=== PATIENT | female | born 1970 | race Caucasian/White ===

== ENCOUNTER 2016-04-22 20:43 | Emergency (ER) | payer BC ==
[~2016-04-22] VITALS: Ht 152.4 cm; Wt 42.9 kg
[~2016-04-22 20:43] MED LIST: [UNRECOGNIZED DRUG - CODE] PO
[2016-04-22 20:46] VITALS: Ht 152.4 cm; Wt 42.9 kg
[2016-04-22] MEDS ORDERED: MULT-506 PO (21:42)
[2016-04-22] MEDS ORDERED: TROLAMINE SALICYLATE 10% CRM 255 APPLN/85 GM TUBE EXT STA (22:47)
[2016-04-22 23:26] VITALS: BP 108/75; PULSE 97; TEMP 37.1; O2SAT 99
--- NOTE | 2016-04-23 04:27 | EMERGENCY ROOM VISIT NOTE ---
History First contact with patient: 22:31 Chief Complaint: LEG PAIN,LEG INJURY Stated Complaint: LEFT THIGH PAIN History of Present Illness The patient is a 46 year old female who presents to the Emergency Room with complaints of left hip pain for the past day that is worse with movement and better with rest who has been doing more walking and stair climbing. Patient states the pain radiates from the lateral aspect of her hip to her hamstring area. Patient did not fall. Patient denies back pain, numbness, tingling, knee pain, urinary symptoms, fever, chills, abdominal pain, chest pain, dyspnea. She describes the pain as aching, ranging in severity 5 out of 10. Worse with movement and better with rest. Review of Systems See HPI for pertinent positives & negatives. A total of 6 systems reviewed and were otherwise negative. Past Medical/Surgical History Medical Problems: (1) Migraine Surgical Problems: (1) H/O adenoidectomy (2) S/P tonsillectomy Family History Cancer Social History Smoking Status: Never Smoker Alcohol Use: none Drug Use: none Marital Status: Housing Status: lives with significant other Occupation Status: employed Current/Historical Medications Scheduled Multivitamin (Multivitamin), 1 TAB PO DAILY Scheduled PRN Lactase (Lactaid Fast Act), 1 TAB PO for WHEN EATS DAIRY Allergies Coded Allergies: Bismuth (Verified Allergy, Mild, GI UPSET, 04/26/15) Beta Adrenergic Blockers (Unverified Allergy, Unknown, UNKNOWN, 04/22/16) BETA BLOCKERS Bismuth Subsalicylate (Unverified Allergy, Unknown, GI SYMPTOMS, 04/22/16) Salicylates (Unverified Allergy, Unknown, VOMITING, 04/26/15) Egg (Verified Adverse Reaction, Unknown, GI SYMPTOMS, 04/26/15) Uncoded Allergies: 3 OR 5 DAY ANTIBIOTIC (Allergy, Unknown, ., 01/09/15) MUSCLE RELAXANTS (Adverse Reaction, Severe, HOMICIDAL AND SUICIDAL IDEATIONS, 06/05/11) Physical Exam Vital Signs Date Time Temp Pulse Resp B/P Pulse Ox O2 Delivery O2 Flow Rate FiO2 04/22/16 23:26 37.1 97 18 108/75 99 04/22/16 22:57 97 18 108/75 99 Room Air 04/22/16 20:46 37.1 114 18 130/79 97 Room Air Pain Rating (0-10): 2.0 Physical Exam VITALS: Vitals are noted on the nurse's note and reviewed by myself. Vital signs stable. GENERAL: Pleasant female, in no acute distress, nondiaphoretic, well-developed well-nourished. SKIN: Capillary reflex less than 2 seconds. HEENT: Normocephalic. PERRLA. EOMI. Nares patent. Mucous membranes moist. HEART: Regular rate and rhythm without murmurs gallops or rubs. LUNGS: Clear to auscultation bilaterally without wheezes, rales or rhonchi. No retractions or accessory muscle use. ABDOMEN: Positive bowel sounds x 4. Normal tympanic percussion. Soft, nontender, without masses or organomegaly. Richard sign negative. No guarding or rebound tenderness. MUSCULOSKELETAL: No gross musculoskeletal defects. No pedal edema. No calf tenderness. No thoracic or lumbar tenderness on exam. Left hip bursa area tender to palpation easily reproducing symptoms with increased pain with range of motion. Pelvis stable. Left thigh, knee nontender to palpation. Patient can fully extend the leg without difficulties. NEURO: Patient was alert and oriented to person place and time. Normal sensation to light and sharp touch. No focal neurological deficits. Medical Decision & Procedures Medications Administered Medications (Trade) Dose Ordered Sig/Bienvenido Route Start Time Stop Time Status Last Admin Dose Admin Trolamine Salicylate (Myoflex Cream) 1 appln NOW STAT EXT 04/22/16 22:47 04/22/16 22:49 DC 04/22/16 23:27 1 APPLN ED Course Prior records/ancillary studies reviewed. Triage Nursing notes reviewed. Additional history obtained from family The patient's history was concerning for left hip pain. Differential diagnosis: Etiologies such as musculoskeletal, disc herniation, fracture, bursitis, hamstring pull, strain, sprain, metastatic disease, cord compression, discitis, infection, renal colic, as well as others were entertained. Physical findings: As above. No focal neurologic findings noted. ER treatment provided: Myoflex On reassessment the patient felt better. Diagnostics interpreted by me: Deferred Patient was offered x-rays and declined. There was no fall or trauma. This appears to be consistent with trochanteric bursitis. Patient was exquisitely tender over her trochanteric bursa. Symptoms were increased with range of motion.. Patient was advised to stretch the area out and try anti- inflammatories. She is advised follow-up with orthopedics if symptoms persist or here in the ER sooner for severe pain, fevers, numbness, tingling, worsening signs or symptoms or as needed. Patient ambulated out of the ER without difficulties. She is well-appearing. By the evaluation outlined above emergent etiologies such as fracture, infection, r as well as others were deemed relatively unlikely. The pt informed about the findings as listed above. All questions were answered and pleased with the treatment. Return instructions were outlined and the patient was discharged in stable condition. Referral: The patient was referred back to primary care physician or orthopedics for follow-up in 2 to 3 days for a recheck of the current condition. Medical Decision As above Impression Primary Impression: Trochanteric bursitis of left hip Departure Information Dispostion Home / Self-Care Condition GOOD Forms HOME CARE DOCUMENTATION FORM, IMPORTANT VISIT INFORMATION Patient Instructions My [facility], ED Sprain Hip Additional Instructions Do stretches as shown in the ER 3 times a day. Ibuprofen(Motrin, Advil) may be used for fever or pain. Use 400mg every six hours as needed. Take with food. Avoid using more than 1600mg in a 24 hour period. Do not use 1600mg per day for more than three consecutive days without physician direction. Prolonged inappropriate use can lead to stomach upset or ulcers. This medication can be taken if you need to drive, work, or perform activities which may be dangerous when taking narcotic pain medication. (AND/OR) Acetaminophen(Tylenol) may be used for fever or pain. Use 500mg every six hours as needed. Avoid using more than 2000mg in a 24 hour period. This medication can be taken if you need to drive, work, or perform activities which may be dangerous when taking narcotic pain medication. Ice compresses for 20 minutes at a time four times daily for 2-3 days. Use the crutches as instructed. Rest and elevate your injury. Continue current medications. Return to the ER immediately for any numbness, tingling, severe pain, extreme swelling in the extremity or as needed. Call Orthopedics in 5-7 days if symptoms persist to arrange follow up for your injury.
== END 2016-04-22 23:28 | disposition home or self-care (01) ==
LOC: C.EDB 20:43 → C.EDA 23:28
DX: M70.62 Trochanteric bursitis, left hip (principal)

== ENCOUNTER → 2017-01-10 | Outpatient (CLI) | payer BC ==
[~2017-01-10] MED LIST changes: +MULT-506 PO
[2017-01-10 23:23] LABS: HEMATOCRIT 43.9 % (37-47); MEAN CELL VOLUME 95.2 fL (80-100); MEAN CORPUSCULAR HEMOGLOBIN 32.1 pg (25-34); MEAN CORPUSCULAR HGB CONC 33.7 g/dl (32-36); MEAN PLATELET VOLUME 9.6 fL (7.4-10.4); PLATELET COUNT 314 K/uL (130-400); RED BLOOD COUNT 4.61 M/uL (4.2-5.4); WHITE BLOOD COUNT 8.14 K/uL (4.8-10.8)
[2017-01-10 23:41] LABS: ALT/SGPT 17 U/L (12-78); AST/SGOT 12 U/L (15-37); BLOOD UREA NITROGEN 14 mg/dl (7-18); BUN/CREATININE RATIO 22.1 (10-20); CALCIUM 8.7 mg/dl (8.5-10.1); CARBON DIOXIDE 29 mmol/L (21-32); CHLORIDE 104 mmol/L (98-107); CREATININE 0.64 mg/dl (0.60-1.20); GLUCOSE 101 mg/dl (70-99); SODIUM 139 mmol/L (136-145)
[2017-01-10 23:50] LABS: ALB/GLOB RATIO 1.1 (0.9-2); ALKALINE PHOSPHATASE 69 U/L (45-117); FERRITIN 23.4 ng/ml (8.0-388.0)
== END | disposition home or self-care (01) ==
LOC: C.LAB 23:01
PROVIDERS: ATTEND Internal Medicine
DX: D50.8 Other iron deficiency anemias (principal); G90.8 Other disorders of autonomic nervous system; R00.0 Tachycardia, unspecified; D53.1 Other megaloblastic anemias, not elsewhere classified; E55.9 Vitamin D deficiency, unspecified

== ENCOUNTER 2017-03-22 03:05 | Emergency (ER) | payer BC, OTHER ==
[~2017-03-22] VITALS: Ht 152.4 cm; Wt 44.0 kg
[2017-03-22 03:08] VITALS: TEMP 37.6; Ht 152.4 cm; Wt 44.0 kg
[2017-03-22] MEDS ORDERED: CHOL2000 PO (03:47)
--- NOTE | 2017-03-22 03:53 | EMERGENCY ROOM VISIT NOTE ---
History Report prepared by Zohreh: Javan Jimenez Under the Supervision of: Dr. Kerry Daniels D.O. First contact with patient: 03:18 Chief Complaint: OTHER COMPLAINT Stated Complaint: FOUND LUMP OR MASS History of Present Illness The patient is a 47 year old female who presents to the Emergency Room with complaints of a constant lump located on her abdomen. She states she noticed the lump 2 hours ago while she was sitting down and watching television. She states the lump felt like a "pinch". She state the pain is not exacerbated with pressure or movement. She has associated symptoms of intermittent leg swelling around her ankles. Patient denies any recent weight changes. 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 Patient state she has a history of adverse reactions to beta blockers. Patient denies taking any daily medications. Patient states her family life is currently stressful. Source of History: patient Onset: 2 hours ago Position: abdomen Timing: constant Modifying Factors (Relieving): other (None) Note: Patient has leg swelling around her ankles. Review of Systems See HPI for pertinent positives & negatives. A total of 10 systems reviewed and were otherwise negative. Past Medical & Surgical Medical Problems: (1) Migraine Surgical Problems: (1) H/O adenoidectomy (2) S/P tonsillectomy Family History Cancer Social History Smoking Status: Never Smoker Alcohol Use: none Drug Use: none Marital Status: Housing Status: lives with significant other Occupation Status: employed Current/Historical Medications Scheduled Cholecalciferol (Vitamin D3), 2,000 INTERUNIT PO DAILY Multivitamin (Multivitamin), 1 TAB PO DAILY Scheduled PRN Lactase (Lactaid Fast Act), 1 TAB PO for WHEN EATS DAIRY Allergies Coded Allergies: Bismuth (Verified Allergy, Mild, GI UPSET, 03/22/17) Beta Adrenergic Blockers (Unverified Allergy, Unknown, UNKNOWN, 03/22/17) BETA BLOCKERS Bismuth Subsalicylate (Unverified Allergy, Unknown, GI SYMPTOMS, 03/22/17) Salicylates (Unverified Allergy, Unknown, VOMITING, 03/22/17) Egg (Verified Adverse Reaction, Unknown, GI SYMPTOMS, 03/22/17) Uncoded Allergies: 3 OR 5 DAY ANTIBIOTIC (Allergy, Unknown, ., 01/09/15) MUSCLE RELAXANTS (Adverse Reaction, Severe, HOMICIDAL AND SUICIDAL IDEATIONS, 06/05/11) Physical Exam Vital Signs Date Time Temp Pulse Resp B/P (MAP) Pulse Ox O2 Delivery O2 Flow Rate FiO2 03/22/17 05:30 95 16 127/76 98 Room Air 03/22/17 03:08 37.6 110 20 139/78 97 Room Air Physical Exam HEENT: Head - normocephalic and atraumatic Pupils are equal, round, and reactive to light. Extraocular eye muscles are intact, and sclera are anicteric. Nose - moist nasal mucosa without discharge. Mouth - moist buccal mucosa. Oropharynx is nonerythematous and there is no tonsillar exudate or edema noted. Neck: Supple; no JVD, nuchal rigidity, cervical lymphadenopathy, or auscultated bruits. Heart: Regular rate and rhythm. There is a normal S1 and S2 with no murmurs, clicks, or gallops appreciated. Lungs: Clear to auscultation bilaterally with no wheezes, rales, or rhonchi. Abdomen: Soft, completely nontender, nondistended, with good bowel sounds. There are no palpable. pulsatile masses or hepatosplenomegaly. There is no guarding, rigidity, or rebound noted. The is a soft tissue mass overlying the floating ribs laterally that feels consistent with a lipoma. Extremities: No evidence of cyanosis, clubbing, or edema. There are easily palpable peripheral pulses. Skin: warm and dry with good turgor and no rashes. Medical Decision & Procedures ER Provider Diagnostic Interpretation: Radiology results as stated below per my review and the radiologist's interpretation: US SOFT TISSUE: 5.3 x 3.5 x 0.7 cm mass and superficial soft tissues of right upper anterolateral abdominal wall is isoechoic to adjacent fat and there is associated capsule. No associated flow on color Doppler. Findings are compatible with lipoma. Radiologist: Dmitriy Briscoe MD ED Course 0335: The patient was evaluated in room A4b. A complete history and physical examination were performed. Nursing notes and previous electronic medical records were reviewed. The patient went for ultrasound of this soft tissue mass. It was felt to be a lipoma. 0620: Upon reevaluation, patient is resting comfortably. I discussed findings and results with her. She verbalized agreement of the treatment plan. She was discharged home. Medical Decision The patient is a 47 year old female who presents to the ED with a lump located on her abdomen. Differential diagnosis includes lymph node enlargement, lipoma, and skin abscess. Ultrasound confirms this to be a lipoma. The patient was instructed to follow- up with her PCP if the area became larger. Medication Reconcilliation Current Medication List: was personally reviewed by me Blood Pressure Screening Patient's blood pressure: Normal blood pressure Blood pressure disposition: Did not require urgent referral Impression Primary Impression: Abdominal lipoma Scribe Attestation The scribe's documentation has been prepared under my direction and personally reviewed by me in its entirety. I confirm that the note above accurately reflects all work, treatment, procedures, and medical decision making performed by me. Departure Information Dispostion Home / Self-Care Referrals Arabella Angel M.D. (PCP) Forms HOME CARE DOCUMENTATION FORM, IMPORTANT VISIT INFORMATION, WORK / SCHOOL INSTRUCTIONS Patient Instructions ED Lipoma, My [facility] Additional Instructions Follow up with PCP if Lipoma gets larger
[2017-03-22 05:30] VITALS: BP 127/76; PULSE 95; O2SAT 98
--- NOTE | 2017-03-22 07:10 | DIAGNOSTIC IMAGING REPORT ---
ABDOMEN LIMITED (US) HISTORY: 47 years-old Female eval mass in RUQ - possible lipoma palpable abnormality of the right lateral upper abdominal wall for one day COMPARISON: CTA of the chest 01/16/2015 TECHNIQUE: Multiple real-time sonographic images of the right lateral upper anterior abdominal wall were obtained assessing grayscale appearance and color flow. FINDINGS: Within the area of concern there is an ovoid parallel orientation structure with thin internal areas of increased echogenicity which is overall isoechoic to adjacent subcutaneous fat measuring up to 3.4 x 0.7 x 5.3 cm which appears to be mobile within the subcutaneous tissues with a thin capsule. No internal vascularity identified. IMPRESSION: 5.3 cm ovoid structure correlating with area of palpable concern suggests subcutaneous lipoma. The above report was generated using voice recognition software. It may contain grammatical, syntax or spelling errors. Electronically signed by: Bhanu Jerry M.D. 03/22/2017 7:08 AM Dictated Date/Time: 03/22/2017 7:05 AM
== END 2017-03-22 05:59 | disposition home or self-care (01) ==
LOC: C.EDB 03:06 → C.EDA 05:59
DX: D17.5 Benign lipomatous neoplasm of intra-abdominal organs (principal); R60.0 Localized edema

== ENCOUNTER 2017-05-05 03:32 | Emergency (ER) | payer OTHER ==
[~2017-05-05] VITALS: Ht 152.4 cm; Wt 42.5 kg
[~2017-05-05 03:32] MED LIST changes: +CHOL2000 PO
[2017-05-05 03:42] VITALS: TEMP 37.1; Ht 152.4 cm; Wt 42.5 kg
[2017-05-05] MEDS ORDERED: LIDOCAINE HCL 2% VISC SOLN 20 ML UDC PO STA (03:56)
[2017-05-05] MEDS ORDERED: ALUMINUM/MAGNESIUM SUSP 30 ML UDC PO STA (03:56)
[2017-05-05] MEDS ORDERED: SODIUM CHLORIDE 0.9% 500ML 500 ML IV STA (03:56)
[2017-05-05] MEDS ORDERED: DEXAMETHASONE **PF** INJ 10 MG/ML VIAL IV ONE (04:00)
[2017-05-05 04:18] LABS: BASO % 0.2 %; BASO ABS # 0.03 K/uL (0-0.2); EOS % 0.3 %; EOS ABS # 0.05 K/uL (0-0.5); HEMATOCRIT 44.8 % (37-47); HEMOGLOBIN 15.4 g/dL (12.0-16.0); IG# 0.04 K/uL (0.00-0.02); LYMPH % 8.5 %; LYMPH ABS # 1.32 K/uL (1.2-3.4); MEAN CELL VOLUME 92.9 fL (80-100); MEAN CORPUSCULAR HGB CONC 34.4 g/dl (32-36); MEAN PLATELET VOLUME 9.2 fL (7.4-10.4); MONO % 7.5 %; MONO ABS # 1.16 K/uL (0.11-0.59); NEUT % 83.2 %; PLATELET COUNT 279 K/uL (130-400); RED CELL DISTRIBUTION WIDTH CV 12.4 % (11.5-14.5); RED CELL DISTRIBUTION WIDTH SD 42.4 fL (36.4-46.3)
[2017-05-05] MEDS ORDERED: OPTIRAY 320 IV PRN (04:30)
[2017-05-05 04:36] LABS: CREATININE 0.48 mg/dl (0.60-1.20)
[2017-05-05 04:37] LABS: ALBUMIN 3.8 gm/dl (3.4-5.0); CALCIUM 8.8 mg/dl (8.5-10.1); POTASSIUM 3.3 mmol/L (3.5-5.1)
[2017-05-05 04:39] LABS: TOTAL PROTEIN 8.1 gm/dl (6.4-8.2)
[2017-05-05] MEDS ORDERED: POTASSIUM CHLORIDE 10 MEQ TABCR PO STA (04:50)
[2017-05-05] MEDS ORDERED: POTASSIUM CHLORIDE 20 MEQ/15 ML UDC ONE (06:40)
[2017-05-05] MEDS ORDERED: ALUMINUM/MAGNESIUM SUSP 30 ML UDC ONE (06:47)
[2017-05-05] MEDS ORDERED: LIDOCAINE HCL 2% VISC SOLN 20 ML UDC ONE (06:48)
--- NOTE | 2017-05-05 06:49 | EMERGENCY ROOM VISIT NOTE ---
History First contact with patient: 03:48 Chief Complaint: SORETHROAT Stated Complaint: SEVERE SORE THROAT History of Present Illness The patient is a 47 year old female who presents to the Emergency Room with complaints of severe dysphagia for the past few days who started off with a sore throat last week that resolved and now complains of dysphagia with some congestion. Patient states she is only able to eat soft foods and drink liquids. Patient states the Tylenol mass her pain. She does not want to take any other medicines as she feels like this might mask her symptoms. Patient states she wants to know what is wrong with her. Patient went to urgent care and had a negative strep test on Thursday. Patient denies fevers, chest pain, dyspnea, abdominal pain, neck stiffness, earache, sinus pain, dyspnea. Patient had some congestion earlier but this is resolved. Patient also complains of hoarseness. She does not smoke and no excessive alcohol intake. No recent travel. Review of Systems An 10 system review of systems was completed with positives and pertinent negatives listed in the HPI. Past Medical/Surgical History Medical Problems: (1) Migraine Surgical Problems: (1) H/O adenoidectomy (2) S/P tonsillectomy Family History Cancer Social History Smoking Status: Never Smoker Alcohol Use: none Drug Use: none Marital Status: Housing Status: lives with significant other Occupation Status: employed Current/Historical Medications Scheduled Cholecalciferol (Vitamin D3), 2,000 INTERUNIT PO DAILY Lidocaine Hcl (Mouth-Throat) (Lidocaine Viscous), 10 ML PO TID Multivitamin (Multivitamin), 1 TAB PO DAILY Scheduled PRN Lactase (Lactaid Fast Act), 1 TAB PO for WHEN EATS DAIRY Physical Exam Vital Signs Date Time Temp Pulse Resp B/P (MAP) Pulse Ox O2 Delivery O2 Flow Rate FiO2 05/05/17 06:22 112 20 132/80 99 Room Air 05/05/17 05:17 117 18 133/88 99 Room Air 05/05/17 03:42 37.1 122 18 127/85 97 Room Air 05/05/17 03:42 98 Room Air Physical Exam VITALS: Vitals are noted on the nurse's note and reviewed by myself. Vital signs stable. GENERAL: White female speaking in full sentences maintaining her own secretions , in no acute distress, nondiaphoretic, well-developed well-nourished. SKIN: The skin was without rashes, erythema, edema, or bruising. There is no tenting of the skin. Capillary reflex less than 2 seconds. HEAD: Normocephalic atraumatic. EARS: External auditory canals clear, tympanic membranes pearly catalan without erythema or effusion bilaterally. EYES: Pupils equal round and reactive to light and accommodation. Conjunctivae without injection, sclerae without icterus. Extraocular movements intact. NOSE: Patent, turbinates without inflammation or discharge. No sinus tenderness. MOUTH: Mucous membranes moist. Pharynx without erythema or exudate. Uvula midline. Airway patent. Tongue does not deviate. NECK: Supple without nuchal rigidity. No lymphadenopathy. No thyromegaly. Cervical spine is nontender. No JVD. HEART: Regular rate and rhythm without murmurs gallops or rubs. LUNGS: Clear to auscultation bilaterally without wheezes, rales or rhonchi. No retractions or accessory muscle use. ABDOMEN: Positive bowel sounds x 4. Normal tympanic percussion. Soft, nontender, without masses or organomegaly. Richard sign negative. No guarding or rebound tenderness. No CVA tenderness MUSCULOSKELETAL: No muscle atrophy, erythema, or edema noted. NEURO: Patient was alert and oriented to person place and time. Normal sensation to light and sharp touch. No focal neurological deficits. Medical Decision & Procedures Laboratory Results 05/05/17 04:11 Red Blood Count 4.82, Mean Corpuscular Volume 92.9, Mean Corpuscular Hemoglobin 32.0, Mean Corpuscular Hemoglobin Concent 34.4, Mean Platelet Volume 9.2, Neutrophils (%) (Auto) 83.2, Lymphocytes (%) (Auto) 8.5, Monocytes (%) (Auto) 7.5, Eosinophils (%) (Auto) 0.3, Basophils (%) (Auto) 0.2, Neutrophils # (Auto) 12.90, Lymphocytes # (Auto) 1.32, Monocytes # (Auto) 1.16, Eosinophils # (Auto) 0.05, Basophils # (Auto) 0.03 05/05/17 04:11 Test 05/05/17 04:11 White Blood Count 15.50 K/uL (4.8-10.8) Red Blood Count 4.82 M/uL (4.2-5.4) Hemoglobin 15.4 g/dL (12.0-16.0) Hematocrit 44.8 % (37-47) Mean Corpuscular Volume 92.9 fL (80-100) Mean Corpuscular Hemoglobin 32.0 pg (25-34) Mean Corpuscular Hemoglobin Concent 34.4 g/dl (32-36) Platelet Count 279 K/uL (130-400) Mean Platelet Volume 9.2 fL (7.4-10.4) Neutrophils (%) (Auto) 83.2 % Lymphocytes (%) (Auto) 8.5 % Monocytes (%) (Auto) 7.5 % Eosinophils (%) (Auto) 0.3 % Basophils (%) (Auto) 0.2 % Neutrophils # (Auto) 12.90 K/uL (1.4-6.5) Lymphocytes # (Auto) 1.32 K/uL (1.2-3.4) Monocytes # (Auto) 1.16 K/uL (0.11-0.59) Eosinophils # (Auto) 0.05 K/uL (0-0.5) Basophils # (Auto) 0.03 K/uL (0-0.2) RDW Standard Deviation 42.4 fL (36.4-46.3) RDW Coefficient of Variation 12.4 % (11.5-14.5) Immature Granulocyte % (Auto) 0.3 % Immature Granulocyte # (Auto) 0.04 K/uL (0.00-0.02) Anion Gap 9.0 mmol/L (3-11) Est Creatinine Clear Calc Drug Dose 95.1 ml/min Estimated GFR () 133.5 Estimated GFR (Non- 115.2 BUN/Creatinine Ratio 18.8 (10-20) Calcium Level 8.8 mg/dl (8.5-10.1) Total Bilirubin 0.5 mg/dl (0.2-1) Direct Bilirubin 0.1 mg/dl (0-0.2) Aspartate Amino Transf (AST/SGOT) 11 U/L (15-37) Alanine Aminotransferase (ALT/SGPT) 20 U/L (12-78) Alkaline Phosphatase 84 U/L (45-117) Total Protein 8.1 gm/dl (6.4-8.2) Albumin 3.8 gm/dl (3.4-5.0) Human Chorionic Gonadotropin, Qual NEG (NEG) Medications Administered Medications (Trade) Dose Ordered Sig/Bienvenido Route Start Time Stop Time Status Last Admin Dose Admin Potassium Chloride (Sherine Ciel Elix) 20 meq STK-MED ONCE .ROUTE 05/05/17 06:40 05/05/17 06:41 DC 05/05/17 06:42 20 MEQ ED Course Prior records/ancillary studies reviewed. Triage Nursing notes reviewed. The patient's history was concerning for dysphasia. Differential diagnosis: Etiologies such as viral syndrome, reflux, epiglottitis, vocal cord dysfunction , streptococcal pharyngitis, mononucleosis, peritonsillar abscess, retropharyngeal abscess, otitis, pneumonia, influenza, as well as others were entertained. ER treatment provided: Patient refused GI cocktail and IV fluids On reassessment the patient felt better. Diagnostics interpreted by me: The labs revealed leukocytosis, hyperglycemia without DKA. Mild hypokalemia this is replaced orally Rapid strep is negative and sent for culture Imaging studies: CT NECK: No fluid collections. No abnormal mass lesions. Mucosal hyperenhancement hypopharynx, compatible with pharyngitis. Narrowing of glottis and soft tissue prominence at the hypopharynx/upper esophageal sphincter, but this is likely related to breath-holding. Airway is otherwise widely patent. No adenopathy. Osseous structures are unremarkable. Sinuses and lung apices are clear. Radiologist: Dmitriy Briscoe MD This appears to be consistent with pharyngitis that most likely is viral in etiology. She had a negative strep test 2 days ago and today. Patient was neurovascularly and neurologically intact. No signs of airway compromise. Patient at first was concerned about the CT. She was informed she had a CTA 2 years ago and had no reaction. Patient then requested antibiotics and discharge. I informed her this is inappropriate without doing further testing. Her exam does not seem consistent with strep infection. Her tonsils removed many years ago. She had no erythema or exudates in the throat or fever. Patient was informed to do a soft diet the next few days and drink tea with honey and stay well-hydrated. Patient states she had one episode of coughing and her sputum had a little bit of red streaking this to it. No cup full of blood. She was informed this most likely is irritation to her sinuses from the congestion and occasional dry cough. Patient was advised to follow-up family care in a day or 2 or here in the ER sooner for chest pain, difficulty breathing , difficulty swallowing, fevers, worsening signs or symptoms or as needed. Patient had no signs of meningitis or airway compromise. She is tolerating fluids. She is well-appearing. She Informed Me She Is Sensitive to Most Medications and Does Not like to Take Them. She Also Informed Me That She Is Anorexic. By the evaluation outlined above emergent etiologies such as peritonsillar abscess, retropharyngeal abscess, otitis, pneumonia, meningitis, urinary tract infection, sepsis, bacteremia, as well as others were deemed relatively unlikely. Patient then stated at discharge that she would like to have a GI cocktail to go home with. This is given to her to help her out with her throat discomfort. The pt informed about the findings as listed above. All questions were answered and pleased with the treatment. Return instructions were outlined and the patient was discharged in stable condition. Outpatient prescription management: Viscous lidocaine Referral: The patient was referred back to their primary care physician for follow-up in 2 to 3 days for a recheck of the current condition. Case reviewed with my attending The chart was completed utilizing [employer] Speech voice recognition software. Grammatical errors, random word insertions, pronoun errors, and incomplete sentences are an occassional consequence of this system due to software limitations, ambient noise, and hardware issues. Any formal questions or concerns about the content, text, or information contained within the body of this dictation should be directly addressed to the physician studio assistant for clarification. Medical Decision As above Medication Reconcilliation Current Medication List: was personally reviewed by me Blood Pressure Screening Patient's blood pressure: Normal blood pressure Impression Primary Impression: Pharyngitis Additional Impression: Hypokalemia Departure Information Dispostion Home / Self-Care Condition GOOD Prescriptions Lidocaine Hcl (Mouth-Throat) (LIDOCAINE VISCOUS) 2 % Kati 10 ML PO TID for 6 Days, #100 ML Prov: Adriana Fields .SAMIA 05/05/17 Referrals Arabella Angel M.D. (PCP) Patient Instructions My [facility] Additional Instructions Acetaminophen(Tylenol) may be used for fever or pain. Use 1000mg every six hours as needed. Avoid using more than 4000mg in a 24 hour period. Viscous lidocaine: 10 mL's every 4-6 hours as needed for sore throat. Afrin nasal spray: 2-3 sprays to each nostril twice daily as needed for congestion. Do not use for more than 3-4 days because it can lead to worsening rebound congestion. Pseudoephedrine(Sudaphed): 30-60mg every 6 hours as needed for nasal congestion. Do not take this with other stimulant products or supplements. Rest and drink plenty of fluids. Controlling your fever with Tylenol and Ibuprofen as above will make you feel better. Wash your hands after nose blowing, sneezing, or coughing. Most germs are spread through contact, therefore improper hygiene may result in your close contacts and loved ones becoming ill just like you. Continue current medications. Return to the ER for severe headache, neck stiffness, chest pain, difficulty breathing, fevers, vomiting, worsening of your condition, or as needed. Follow up with your primary physician this week for a recheck of your current condition. Problem Qualifiers Primary Impression: Pharyngitis Pharyngitis/tonsillitis etiology: unspecified etiology Qualified Codes: J02.9 - Acute pharyngitis, unspecified
[2017-05-05] MEDS ORDERED: LIDO2SOL19 PO (06:50)
--- NOTE | 2017-05-05 07:02 | DIAGNOSTIC IMAGING REPORT ---
SOFT TISSUE NECK WITH HISTORY: 47 years-old Female severe dysphagia symptoms are acute in nature. COMPARISON: CT maxillofacial study 04/26/2015 TECHNIQUE: Multiple axial CT images of the soft tissues of the neck were obtained following the intravenous administration of 92 mL Optiray 320 IV contrast. FINDINGS: The nasopharynx, oral pharynx and hypopharynx are patent. Epiglottis and aryepiglottic folds are within normal limits. The vallecula and piriform sinuses are within normal limits and are symmetric. No glottic mass lesion identified. True vocal folds are symmetric and within normal limits. There is mild increased enhancement noted about the pharynx without evidence of tonsillitis or drainable fluid collection. Bilateral submandibular, parotid and sublingual glands are within normal limits. No pathologic-appearing adenopathy about the neck. Orbits appear to be within normal limits. Thyroid is homogeneous. Lung apices appear clear. Mild emphysematous changes noted within the lung apices. Image intracranial structures demonstrate no acute abnormality. Mastoid air cells and middle ear cavities are clear. The paranasal sinuses also appear to be generally clear. Mild straightening of the normal cervical lordosis. IMPRESSION: 1. Symmetric mildly increased enhancement about the pharynx may reflect mild infectious or inflammatory pharyngitis. No evidence of tonsillitis or drainable fluid collection. 2. No significant airway narrowing or adenopathy of the neck. The above report was generated using voice recognition software. It may contain grammatical, syntax or spelling errors. Electronically signed by: Bhanu Jerry M.D. 05/05/2017 7:01 AM Dictated Date/Time: 05/05/2017 6:56 AM
--- NOTE | 2017-05-05 08:09 | DIAGNOSTIC IMAGING REPORT ---
TWO VIEW CHEST CLINICAL HISTORY: Throat pain. Hemoptysis. FINDINGS: PA and lateral chest radiographs are compared to chest x-ray and chest CT dated 01/16/2015. The cardiomediastinal silhouette is unremarkable. There is minimal left basilar atelectasis. The lungs and pleural spaces are otherwise clear. There is no pneumothorax. The bony thorax appears intact. Excreted IV contrast is present within the renal collecting system bilaterally. IMPRESSION: No acute cardiopulmonary abnormality. Electronically signed by: Nilesh Segura M.D. 05/05/2017 8:07 AM Dictated Date/Time: 05/05/2017 8:06 AM
[2017-05-05 08:27] VITALS: BP 130/89; PULSE 102; O2SAT 99
--- NOTE | 2017-05-05 14:20 | EMERGENCY ROOM VISIT NOTE ---
ED Visit Note Emergency Department Note Ms. Nolasco is a 47-year-old white female who was seen in the emergency department prior to the start of my shift. She was evaluated by Yoko Fields and was diagnosed with acute pharyngitis. On her ED stay she had multiple testings and they revealed a leukocytosis, negative group B strep test, multiple mild electrolyte abnormalities and a contrast neck CT showed mucosal hyperenhancement in the hypopharynx, narrowing of the glottis and soft tissue prominence in the hypopharynx/upper esophageal sphincter, widely patent airway, no lymphadenopathy and normal-appearing sinuses and lung apices. She was discharged and awaiting transport for home when she reports she had a mild cough and spit up a half dollar sized amount of bloody sputum. I was asked to reassess the patient as Ms. Fields had already left at the end of her shift. Currently patient is not indicating any worsening symptoms from her previous. She has not had any difficulty swallowing or difficulty breathing. On reevaluation of her physical examination she is in no acute distress. She is awake alert and oriented 3. She is answering questions appropriately and following commands. Neurologically she is intact. Her oral cavity was moist and pink. Her uvula is midline and no abscesses were seen. There was no posterior pharyngeal erythema but there was mild edema. Her speech was normal and clear. No auditory or ausculatory stridor. Her lungs were clear to auscultation and equal bilaterally. I did have a chest x-ray series taken and show no acute infiltrates, effusions or pneumothorax. Normal heart silhouette and bony anatomy. Radiologist notes that there was minimal left basilar atelectasis. I reviewed the case with my attending, Dr. Alonzo and we agreed to place the patient on a short term of antibiotics because of her symptoms and her white count elevation but also to continue her previous discharge instructions. During my evaluation of the patient she did have multiple coughs but did not bring up any additional episodes of blood. Patient was encouraged to continue her current treatment plan and she was given a prescription for amoxicillin 500 mg 3 times a day for 7 days. She was also encouraged to follow-up closely with her primary care provider and return to the ED for worsening symptoms.
== END 2017-05-05 07:09 | disposition home or self-care (01) ==
LOC: C.EDB 03:33 → C.EDA 07:09
DX: J02.9 Acute pharyngitis, unspecified (principal); E87.6 Hypokalemia; G43.909 Migraine, unspecified, not intractable, without status migrainosus; Z80.9 Family history of malignant neoplasm, unspecified

== ENCOUNTER 2017-10-26 21:29 | Emergency (ER) | payer OTHER ==
[~2017-10-26] VITALS: Ht 152.4 cm; Wt 43.0 kg
[2017-10-26 21:42] VITALS: TEMP 36.8; Ht 152.4 cm; Wt 43.0 kg
[2017-10-26] MEDS ORDERED: AMOXICILLIN 250 MG CAP PO STA ×2 (22:21)
[2017-10-26] MEDS ORDERED: AMX500 PO (22:22)
--- NOTE | 2017-10-26 22:25 | EMERGENCY ROOM VISIT NOTE ---
History First contact with patient: 22:00 Chief Complaint: FOOT PAIN Stated Complaint: INFECTION OR INSECT BITE History of Present Illness The patient is a 47 year old female who presents to the Emergency Room via private vehicle accompanied by male with complaints of " infection or insect bite". The patient states that she noticed today around 9:30 AM some small punctate redness overlying the medial aspect of her left MTP joint region. She states that there is been no pain or injury. She states that the redness has increased. She notes that it is not warm. She denies seeing anything bite her. She states a few weeks ago she noted an injury to the area with a small retained no metallic foreign body which she notes she was unable to completely removed. Review of Systems A complete 6-point Review of Systems was discussed with the patient, with pertinent positives and negatives listed in the History of Present Illness. All remaining Review of Systems questions can be considered negative unless otherwise specified. Past Medical/Surgical History Medical Problems: (1) Migraine Surgical Problems: (1) H/O adenoidectomy (2) S/P tonsillectomy Family History Cancer Social History Smoking Status: Never Smoker Alcohol Use: none Drug Use: none Marital Status: Housing Status: lives with significant other Occupation Status: employed Current/Historical Medications Scheduled Amoxicillin (Amoxicillin), 500 MG PO TID Cholecalciferol (Vitamin D3), 2,000 INTERUNIT PO DAILY Multivitamin (Multivitamin), 1 TAB PO DAILY Scheduled PRN Lactase (Lactaid Fast Act), 1 TAB PO for WHEN EATS DAIRY Physical Exam Vital Signs Date Time Temp Pulse Resp B/P (MAP) Pulse Ox O2 Delivery O2 Flow Rate FiO2 10/26/17 22:42 89 16 128/81 100 Room Air 10/26/17 21:42 36.8 86 18 99 Room Air Physical Exam VITAL SIGNS - Vital signs and nursing notes were reviewed. Stable. GENERAL - 47-year-old female appearing her stated age who is in no acute distress. Communicates well with provider and answers questions appropriately. SKIN -there is a small 3 cm in diameter erythematous region overlying the patient's medial aspect of the left first MTP joint. HEAD - NC/AT. EYES - Sclera anicteric. EARS - No deformities of external structures noted on gross examination bilaterally. NOSE - Midline and without cyanosis. No epistaxis or purulent drainage noted. MOUTH/OROPHARYNX - Without perioral cyanosis. LUNGS - Chest wall symmetric without accessory muscle use, intercostals retractions, or central cyanosis. Normal vesicular breath sounds CTA B/L. No wheezes, rales, or rhonchi appreciated. CARDIAC - RRR with S1/S2. No murmur, rubs, or gallops appreciated. EXTREMITIES - No clubbing or peripheral cyanosis. No pretibial edema present. Skin changes as above. No tenderness. No purulence. No induration. No fluctuance. NEUROLOGIC - Cranial nerves II through XII grossly intact. Sensory intact to light touch throughout. PSYCH - A&O, and cooperates fully with examiner. Pt is very pleasant and interacts well with examiner. Medical Decision & Procedures Medications Administered Medications (Trade) Dose Ordered Sig/Bienvenido Route Start Time Stop Time Status Last Admin Dose Admin Amoxicillin (Amoxil Cap) 500 mg NOW STAT PO 10/26/17 22:21 10/26/17 22:22 DC 10/26/17 22:38 500 MG Medical Decision Patient was seen and evaluated as above in room A2. Review was performed of nursing notes and vital signs. After obtaining a thorough history and physical examination the above work up was performed. She presents to us today with erythema of the left foot. She is nontoxic on exam. No systemic findings. I suspect this is likely irritation from an insect bite. It was discussed how early cellulitis could appear similar. Benefit versus risk of initiating antibiotics were discussed. I recommended Keflex. Patient noted that she would prefer to use amoxicillin given her numerous allergies. I will honor this request, and this was done after thoroughly discussing benefit versus risk. Region was outlined. Region was dressed with a bacitracin dressing. She is to follow with the family doctor or return with worsening. The patient was educated upon management, educated upon todays findings/results, educated upon symptoms in which to return, had questions answered prior to discharge, and was discharged home in good condition. She was given 500 mg of amoxicillin here with the other tablets at home to be taken 8 hours with remainder at her pharmacy. In the evaluation and treatment of this patient the following differential diagnoses were entertained: Cellulitis, skin irritation secondary to insect bite , among others. Impression Primary Impression: Skin irritation Departure Information Dispostion Home / Self-Care Condition GOOD Prescriptions Amoxicillin (Amoxicillin) 500 Mg Cap 500 MG PO TID for 7 Days, #21 TABS Prov: Kun Tran PA-C 10/26/17 Referrals Arabella Angel M.D. (PCP) Patient Instructions My [facility] Additional Instructions You were seen in the emergency department for irritation to the foot. At this time I do not believe that this is a large infection however do believe after discussing benefit versus risk that initiation of amoxicillin is warranted. Amoxicillin 500mg every 8 hours. Please follow-up with your family doctor by the end of the week if this does not improve or return here if worsening. Please return with any new/concerning symptoms.
[2017-10-26 22:42] VITALS: BP 128/81; PULSE 89; O2SAT 100
== END 2017-10-26 22:43 | disposition home or self-care (01) ==
LOC: C.EDB 21:29 → C.EDA 22:43
DX: L98.9 Disorder of the skin and subcutaneous tissue, unspecified (principal)